=== PATIENT | male | born 1950 | race Caucasian/White ===

== ENCOUNTER 2024-03-23 20:23 | Emergency (ER) | payer OTHER ==
[~2024-03-23] VITALS: Ht 180.3 cm; Wt 74.8 kg
[2024-03-23 21:55] VITALS: BP 138/69; PULSE 57; RESP 16; TEMP 97.9; O2SAT 98
[2024-03-23] MEDS ORDERED: TRAM-626 PO (23:47)
[2024-03-23] MEDS ORDERED: CLIN1CAP70 PO (23:47)
[2024-03-24] MEDS: cefTRIAXone SOD 1,000 MG VL IM ONE (00:11)
[2024-03-24] MEDS: HYDROcodone-ACET 5/325MG TAB PO ONE (00:12)
[2024-03-24] MEDS: TETANUS-DIPTH-ACEL PERTUSSIS 0.5ML SYR Tdap IM ONE (00:12)
== END 2024-03-24 00:19 | disposition home or self-care (01) ==
LOC: ER 20:23
DX: T63.301A Toxic effect of unspecified spider venom, accidental (unintentional), initial encounter (principal); L08.89 Other specified local infections of the skin and subcutaneous tissue; E11.9 Type 2 diabetes mellitus without complications; Y92.89 Other specified places as the place of occurrence of the external cause
CPT/HCPCS: 90471; 90715; 96372; 99284; J0696